=== PATIENT | male | born 1965 ===

== ENCOUNTER 2016-11-24 08:59 | Emergency (ER) | payer OTHER ==
[2016-11-24 09:29] VITALS: TEMP 97.8
--- NOTE | 2016-11-24 09:44 | C.PDOC ---
History Of Present Illness 50 y/o M c no PMHx p/w R knee pain x 3 days. Pain began spontaneously, no injury or trauma. Denies fever or inability to range. Reports pain in a focal area at the medial aspect of the knee. Time Seen by Provider: 11/24/16 09:15 Chief Complaint (Nursing): Lower Extremity Problem/Injury Past Medical History Vital Signs: Last Vital Signs Temp 97.8 F 11/24/16 09:26 Pulse 64 11/24/16 09:26 Resp 16 11/24/16 09:26 BP 121/88 11/24/16 09:26 Pulse Ox 96 11/24/16 09:44 - Medical History PMH: Denies: Chronic Kidney Disease Family History: States: Unknown Family Hx - Social History Hx Tobacco Use: No Hx Alcohol Use: No Hx Substance Use: No - Immunization History Hx Tetanus Toxoid Vaccination: No Hx Influenza Vaccination: No Hx Pneumococcal Vaccination: No Review Of Systems Except As Marked, All Systems Reviewed And Found Negative. Constitutional: Negative for: Fever Respiratory: Negative for: Shortness of Breath Physical Exam - Physical Exam Additional Physical Exam Comments: Gen: NAD. Head: AC. Extremities: R knee with focal tenderness medial to patella. No edema, erythema , or limitation in range of motion. Neuro: Sensation to light touch and motor both intact in lower leg. ED Course And Treatment O2 Sat by Pulse Oximetry: 96 Medical Decision Making Medical Decision Making: Toradol IM for pain. XR negative for dislocation or fracture. Otherwise, will advise rest, compression, elevation, pain control, and follow up with Orthopedics for further evaluation and management. Disposition - Disposition Referrals: [facility] at [facility] [Outside] Disposition: HOME/ ROUTINE Disposition Time: 11:10 Condition: STABLE Additional Instructions: Call the [facility] to make an appointment and say that you need to follow up with Orthopedics. Prescriptions: Famotidine [Pepcid] 1 tab PO BID #14 tab Ibuprofen [Motrin] 600 mg PO Q6 #25 tab Instructions: Knee Pain (ED) Forms: Work Excuse - Clinical Impression Clinical Impression: Knee pain
--- NOTE | 2016-11-24 11:21 | RAD ---
Right knee three views History: Knee pain. Comparison: None available. Findings: Mild medial and patellofemoral compartment joint space narrowing. Mild bony spurring at the posterior superior patella. No significant suprapatellar joint effusion. Mild productive change at the level of the proximal medullary cavity of the fibula on the lateral view, nonspecific. Impression: Degenerative changes. Negative acute. If pain persists, consider MRI.
[2016-11-24 11:58] VITALS: BP 126/78; PULSE 56; RESP 18; O2SAT 99
== END 2016-11-24 11:59 | disposition home or self-care (01) ==
LOC: C.ER 08:59
DX: M25.561 Pain in right knee (principal)
CPT/HCPCS: 73562; 96372; 99285; J1885

== ENCOUNTER 2017-02-06 07:44 | Emergency (ER) | payer OTHER ==
[2017-02-06 07:54] VITALS: BMI 32.3
[2017-02-06 08:05] VITALS: PULSE 56; RESP 18
--- NOTE | 2017-02-06 08:28 | C.PDOC ---
History Of Present Illness 51 year old male presents to ED with complaints of cramping abdominal pain since yesterday. Pt states it feels "hard". H/o similar epsiodes with negative US and no f/u with GI. He took 800mg of Ibuprofen this morning with relief. Patient denies chest pain, SOB, fever, nausea, vomiting, or diarrhea. Chief Complaint (Nursing): Abdominal Pain History Per: Patient, Sqe History/Exam Limitations: no limitations Onset/Duration Of Symptoms: Hrs (since yesterday ) Current Symptoms Are (Timing): Still Present Location Of Pain/Discomfort: Diffuse Quality Of Discomfort: Cramping Associated Symptoms: denies: Fever, Chills, Nausea, Vomiting, Diarrhea Recent travel outside of the [place]: No Past Medical History Reviewed: Historical Data, Nursing Documentation, Vital Signs Vital Signs: Last Vital Signs Temp 97.6 F 02/06/17 11:33 Pulse 56 L 02/06/17 11:33 Resp 18 02/06/17 11:33 BP 118/76 02/06/17 11:33 Pulse Ox 97 02/06/17 17:28 - [facility] Procedures INJECT/INFUSE NEC (09/26/05) NEBULIZER THERAPY (03/08/04) Family History: States: Unknown Family Hx - Social History Hx Alcohol Use: No Hx Substance Use: No - Immunization History Hx Tetanus Toxoid Vaccination: No Hx Influenza Vaccination: No Hx Pneumococcal Vaccination: No Review Of Systems Constitutional: Negative for: Fever, Chills Cardiovascular: Negative for: Chest Pain Respiratory: Negative for: Shortness of Breath Gastrointestinal: Positive for: Abdominal Pain. Negative for: Nausea, Vomiting , Diarrhea Physical Exam - Physical Exam Appears: Non-toxic, No Acute Distress Skin: Warm, Dry Head: Atraumatic Eye(s): bilateral: Normal Inspection, EOMI Nose: Normal Oral Mucosa: Moist Neck: Normal ROM, Supple Chest: Symmetrical, No Deformity Cardiovascular: Rhythm Regular Respiratory: Normal Breath Sounds, No Rhonchi, No Wheezing Gastrointestinal/Abdominal: Soft, Tenderness (diffuse), No Distention, No Guarding, No Rebound Back: No CVA Tenderness, No Vertebral Tenderness Neurological/Psych: Oriented x3, Normal Speech ED Course And Treatment - Laboratory Results Result Diagrams: 02/06/17 09:28 02/06/17 09:28 O2 Sat by Pulse Oximetry: 97 (room air ) - CT Scan/US CT abdomen and pelvis with contrast Other Rad Studies (CT/US): Read By Radiologist, Radiology Report Reviewed CT/US Interpretation: FINDINGS: LOWER THORAX: No visible consolidation, pleural effusion, or pneumothorax. Small hiatal hernia. LIVER: Hypoattenuation of the liver compatible with hepatic steatosis. Evidence of focal fatty sparing adjacent to the gallbladder fossa. GALLBLADDER AND BILE DUCTS: Unremarkable. PANCREAS: Unremarkable. SPLEEN: Unremarkable. ADRENALS: Unremarkable. KIDNEYS AND URETERS: The kidneys enhance symmetrically. No hydronephrosis or obstructing calculus identified. VASCULATURE: No aortic aneurysm. BOWEL: Stomach is nondistended. Lack of oral contrast limits evaluation for bowel pathology. Bowel loops appear within normal limits of caliber without evidence of obstruction. APPENDIX: The appendix appears within normal limits of caliber. No secondary signs of acute appendicitis. PERITONEUM: No significant free fluid. No definite free air. LYMPH NODES: No bulky adenopathy. BLADDER: Unremarkable. REPRODUCTIVE: Unremarkable. BONES: No acute osseous abnormality is detected. . OTHER FINDINGS: None. IMPRESSION: Hepatic steatosis with evidence of focal fatty sparing adjacent to the gallbladder fossa. Small hiatal hernia. Progress Note: Upon re-evaluation patient is resting comfortably, abdomen remains soft, and patient is tolerating PO. Discussed with pt results , copies given and instructed strict follow up. Discussed all aliments have not been ruled out therefore re-evaluation in 1-2 days in suggested. Instructed to return to ER if symptoms persist or worsen. Php Architect used to ensure understanding. Disposition - Disposition Referrals: [facility] at [facility] [Outside] Shine Davis MD [Staff Provider] - Disposition: HOME/ ROUTINE Disposition Time: 11:57 Condition: STABLE Additional Instructions: Vaya a valente mdico o la clnica en 2-5 garcia sin falta, para mas evaluacin. [place] los medicamentos mati indicado. Volver a la chilo de emergencia en cualquier momento si los sntomas persisten o empeoran.. Prescriptions: Famotidine [Pepcid] 20 mg PO BID #10 tab Instructions: Acute Abdominal Pain (ED) Forms: [employer] (Frisian) Print Language: SLOVAK - Clinical Impression Clinical Impression: Abdominal pain - Scribe Statement The provider has reviewed the documentation as recorded by the Scribe Bhargavi Alfredo All medical record entries made by the Scribe were at my direction and personally dictated by me. I have reviewed the chart and agree that the record accurately reflects my personal performance of the history, physical exam, medical decision making, and the department course for this patient. I have also personally directed, reviewed, and agree with the discharge instructions and disposition.
[2017-02-06] MEDS ORDERED: Sodium Chloride 0.9% 1,000 ML IV ONE (08:34)
[2017-02-06 09:33] LABS: EOS # 1.5 K/uL (0.0-0.7); EOS % 22.2 % (0.0-4.0); HEMOGLOBIN 15.4 g/dL (12.0-18.0); LYMPH # 3.7 K/uL (1.0-4.3); LYMPH % 55.6 % (20.0-40.0); MEAN CELL VOLUME 87.5 fL (80.0-94.0); MEAN CORPUSCULAR HEMOGLOBIN 29.8 pg (27.0-31.0); MEAN CORPUSCULAR HGB CONC 34.1 g/dL (33.0-37.0); MONO # 0.7 K/uL (0.0-0.8); MONO % 11.1 % (0.0-10.0); NEUT # 0.7 K/uL (1.8-7.0); NEUT % 11.1 % (50.0-75.0); PLATELET COUNT 193 K/uL (130-400); RBC 5.16 Mil/uL (4.40-5.90); WHITE BLOOD COUNT 6.6 K/uL (4.8-10.8)
[2017-02-06 09:48] LABS: ALBUMIN 3.6 g/dL (3.5-5.0)
[2017-02-06 09:51] LABS: ALB/GLOB RATIO 1.2 (1.0-2.1); ALT/SGPT 95 U/L (21-72); AST/SGOT 40 U/L (17-59); BLOOD UREA NITROGEN 18 mg/dL (9-20); CALCIUM 8.4 mg/dl (8.6-10.4); GFR AFRICAN-AMERICAN > 60; GFR NON-AFRICAN AMERICAN > 60; LIPASE 30 U/L (23-300)
[2017-02-06 10:20] LABS: EOSINOPHIL 2 % (0-4); LYMPHOCYTE 27 % (20-40); MONOCYTE 12 % (0-10); NEUTROPHIL 59 % (50-75); TOTAL CELLS COUNTED 100
[2017-02-06 10:21] LABS: PLATELET ESTIMATE NORMAL (NORMAL)
[2017-02-06] MEDS ORDERED: Iohexol 350mg/ml 100 ML ONE (10:34)
--- NOTE | 2017-02-06 11:27 | CT ---
PROCEDURE: CT Abdomen and Pelvis with contrast HISTORY: pain COMPARISON: None available TECHNIQUE: Contrast dose: 100 mL Visipaque Radiation dose: Total exam DLP = 984.26 mGy-cm. This CT exam was performed using one or more of the following dose reduction techniques: Automated exposure control, adjustment of the mA and/or kV according to patient size, and/or use of iterative reconstruction technique. FINDINGS: LOWER THORAX: No visible consolidation, pleural effusion, or pneumothorax. Small hiatal hernia. LIVER: Hypoattenuation of the liver compatible with hepatic steatosis. Evidence of focal fatty sparing adjacent to the gallbladder fossa. GALLBLADDER AND BILE DUCTS: Unremarkable. PANCREAS: Unremarkable. SPLEEN: Unremarkable. ADRENALS: Unremarkable. KIDNEYS AND URETERS: The kidneys enhance symmetrically. No hydronephrosis or obstructing calculus identified. VASCULATURE: No aortic aneurysm. BOWEL: Stomach is nondistended. Lack of oral contrast limits evaluation for bowel pathology. Bowel loops appear within normal limits of caliber without evidence of obstruction. APPENDIX: The appendix appears within normal limits of caliber. No secondary signs of acute appendicitis. PERITONEUM: No significant free fluid. No definite free air. LYMPH NODES: No bulky adenopathy. BLADDER: Unremarkable. REPRODUCTIVE: Unremarkable. BONES: No acute osseous abnormality is detected. . OTHER FINDINGS: None. IMPRESSION: Hepatic steatosis with evidence of focal fatty sparing adjacent to the gallbladder fossa. Small hiatal hernia.
[2017-02-06 11:33] LABS: URINE BILIRUBIN NEGATIVE (NEGATIVE); URINE BLOOD NEGATIVE (NEGATIVE); URINE CLARITY Clear (Clear); URINE COLOR Yellow (YELLOW); URINE GLUCOSE (UA) NORMAL (Normal); URINE LEUKOCYTE ESTERASE NEG Leu/uL (Negative); URINE NITRATE NEGATIVE (NEGATIVE); URINE PROTEIN NEGATIVE (NEGATIVE); URINE UROBILINOGEN NORMAL mg/dL (0.2-1.0)
[2017-02-06 11:34] VITALS: BP 118/76; TEMP 97.6
[2017-02-06 11:59] VITALS: O2SAT 97
--- NOTE | 2017-02-09 13:16 | CARD ---
APPROVED REPORT EKG Measurement Heart [id number] <Conclusion> Sinus bradycardia Otherwise normal ECG
== END 2017-02-06 12:30 | disposition home or self-care (01) ==
LOC: MERGE 07:44 → C.ER 07:44
DX: R10.9 Unspecified abdominal pain (principal)
CPT/HCPCS: 74177; 80053; 81001; 83690; 84484; 85025; 93005; 96361; 96374; 96375; 99284; J2405; J7040; Q9967

== ENCOUNTER 2017-02-08 16:57 | Observation (INO) | payer SELFPAY ==
[2017-02-08 16:58] VITALS: BMI 32.3
--- NOTE | 2017-02-08 17:39 | C.PDOC ---
History Of Present Illness <Jessica Clinton - Last Filed: 02/08/17 18:54> <Fadi Goldsteins E - Last Filed: 02/08/17 20:24> 51 y/o male presents to the ED for evaluation of persistent right-sided abdominal wall pain which began around 4 days ago. Patient was evaluated on 02/06 for same complaint. Patient currently states his pain has persisted and has been unchanged with Pepcid or muscle relaxants. Patient notes pain is localized and worse when standing upright or when he raises his right arm. Patient denies fever, nausea, vomiting, diarrhea. He denies prior abdominal surgery or trauma. PERSIST R ABD WALL PAIN X 4 DAYS. EVAL 02/06 FOR SAME. CURRENT PAIN PERSIST, UNCH W PEPCID OR MUSCLE RELAXANT. LOCALIZED, WORSE WHEN STAND UPRIGHT OR RAISES R ARM. NO FEVER, NVD. DENIES PRIOR ABD SURG. NO TRAUMA EXAM MOD DIST NONTOXIC NO CHEST WALL TEND ABD +TEND UPPER LAT R WALL/CVAT SOFT NO R/G REMAINDER NEG (Oz,Jessica) History Per: Patient History/Exam Limitations: no limitations Onset/Duration Of Symptoms: Days (4) Current Symptoms Are (Timing): Still Present Radiation Of Pain To:: None Quality Of Discomfort: "Pain" Associated Symptoms: denies: Fever, Chills, Nausea, Vomiting, Diarrhea Exacerbating Factors: Upright Position (standing ), Other (+raising right arm ) Additional History Per: Patient <Jessica Clinton - Last Filed: 02/08/17 18:54> <Fadi Goldsteins E - Last Filed: 02/08/17 20:24> Time Seen by Provider: 02/08/17 17:32 Chief Complaint (Nursing): Abdominal Pain Past Medical History Reviewed: Historical Data, Nursing Documentation, Vital Signs - Medical History PMH: No Chronic Diseases Surgical History: No Surg Hx Family History: States: Unknown Family Hx - Social History Hx Alcohol Use: No Hx Substance Use: No - Immunization History Hx Tetanus Toxoid Vaccination: Yes Hx Influenza Vaccination: Yes Hx Pneumococcal Vaccination: Yes <Jessica Clinton - Last Filed: 02/08/17 18:54> Review Of Systems Constitutional: Negative for: Fever, Chills Gastrointestinal: Positive for: Abdominal Pain (right-sided ). Negative for: Nausea, Vomiting, Diarrhea <Jessica Clinton - Last Filed: 02/08/17 18:54> Physical Exam - Physical Exam Appears: Non-toxic, Other (+moderate distress ) Skin: Normal Color, Warm, Dry Eye(s): bilateral: Normal Inspection Chest: Symmetrical, No Deformity, No Tenderness Cardiovascular: Rhythm Regular, No Murmur Respiratory: Normal Breath Sounds, No Rales, No Rhonchi, No Wheezing Gastrointestinal/Abdominal: Tenderness (+lateral aspect of right upper quadrant ), No Guarding, No Rebound Back: CVA Tenderness (right-sided ) Extremity: Normal ROM, Capillary Refill (less than 2 seconds ) Neurological/Psych: Normal Speech, Normal Cognition Gait: Steady <Jessica Clinton - Last Filed: 02/08/17 18:54> ED Course And Treatment - Laboratory Results Result Diagrams: 02/08/17 18:00 02/08/17 18:00 O2 Sat by Pulse Oximetry: 100 (on RA) Pulse Ox Interpretation: Normal - Radiology CXR: Interpreted by Il CXR Interpretation: Yes: No Acute Disease Progress Note: Labs, CXR, Abdomen XR ordered and reviewed. Patient received Morphine IV, Zofran IV, and IVF. <OzJessica - Last Filed: 02/08/17 18:54> - Laboratory Results Result Diagrams: 02/08/17 18:00 02/08/17 18:00 - CT Scan/US CT Angio Chest Other Rad Studies (CT/US): Read By Radiologist, Radiology Report Reviewed CT/US Interpretation: IMPRESSION: 1. No pulmonary embolism. 2. Small hiatal hernia. 3. Hepatic steatosis. <Jan Goldstein - Last Filed: 02/08/17 20:24> Progress - Data Reviewed Data Reviewed: Lab, Diagnostic imaging, Old records <OzJessica - Last Filed: 02/08/17 18:54> Medical Decision Making <OzJessica - Last Filed: 02/08/17 18:54> <Jan Goldstein - Last Filed: 02/08/17 20:24> Medical Decision Making: signed over @ 1900, pt pending CTA and ABD US for crampy epigastric pain radiating to the back. today is 2nd eval for same from 2 days ago pt seen and examined belly benign, obese, dull to percussion in epigastrum and R abd no digital tenderness to R abd or chest wall normal labs x 2 days 02/06 and 02/08 CTABD neg 02/06 CTA r/o PE for minimally elevated d-dimer 299 neg ABD US 02/08 neg, steatohepatitis 2 view abd +FOS A/P: chronic constipation, despite pt relating he "has regular BM's" laxative and stool softners. (Jan Goldstein) ED OBSERVATION Date of observation admission: 02/08/17 Time of observation admission: 17:30 <Jessica Clinton - Last Filed: 02/08/17 18:54> Discharge: Yes <Jan Goldstein - Last Filed: 02/08/17 20:24> - Observation admission statement Patient is being placed in observation because:: ABD PAIN (Jessica Clinton) - Goals of Observation Goals of observation are:: SX IMPROVE, NEG ACUTE FINDINGS (Jessica Clinton) - Progress Note Progress Note: 02/08/17 18:29 SP MORPHINE FEELS BETTER. APPEARS MORE COMFORTABLE. VSS. +DIMER. US ABD, ANGIO CT PENDING 02/08/17 18:54 S/O DR GOLDSTEIN FU CT, US, DISPO (Jessica Clinton) Disposition <Jessica Clinton - Last Filed: 02/08/17 18:54> Doctor Will See Patient In The: Office Counseled Patient/Family Regarding: Studies Performed, Diagnosis - Disposition Disposition Time: 20:24 <Jan Goldstein - Last Filed: 02/08/17 20:24> - Disposition Disposition: HOME/ ROUTINE Condition: GOOD - Clinical Impression Clinical Impression: Abdominal colic - Scribe Statement The provider has reviewed the documentation as recorded by the Scribe (Beverly Hurtado) <Jessica Clinton - Last Filed: 02/08/17 18:54> <Jan Goldstein - Last Filed: 02/08/17 20:24> - Scribe Statement Provider Attestation: All medical record entries made by the Scribe were at my direction and personally dictated by me. I have reviewed the chart and agree that the record accurately reflects my personal performance of the history, physical exam, medical decision making, and the department course for this patient. I have also personally directed, reviewed, and agree with the discharge instructions and disposition. (Jessica Clinton)
[2017-02-08] MEDS ORDERED: Sodium Chloride 0.9% 1,000 ML IV ONE (17:40)
[2017-02-08] MEDS ORDERED: Morphine 4 MG/ML VIAL ONE (17:47)
[2017-02-08] MEDS ORDERED: Sodium Chloride 0.9% 1,000 ML ONE (17:47)
[2017-02-08 18:04] LABS: BASO # 0.1 K/uL (0.0-0.2); BASO % 0.8 % (0.0-2.0); EOS # 0.3 K/uL (0.0-0.7); EOS % 3.7 % (0.0-4.0); HEMOGLOBIN 16.1 g/dL (12.0-18.0); LYMPH # 2.4 K/uL (1.0-4.3); LYMPH % 28.4 % (20.0-40.0); MEAN CELL VOLUME 87.3 fL (80.0-94.0); MEAN CORPUSCULAR HEMOGLOBIN 30.4 pg (27.0-31.0); MEAN CORPUSCULAR HGB CONC 34.8 g/dL (33.0-37.0); MEAN PLATELET VOLUME 7.7 fL (7.2-11.7); MONO # 0.8 K/uL (0.0-0.8); MONO % 9.5 % (0.0-10.0); NEUT # 4.8 K/uL (1.8-7.0); NEUT % 57.6 % (50.0-75.0); RBC 5.29 Mil/uL (4.40-5.90); RED CELL DISTRIBUTION WIDTH 13.3 % (11.5-14.5); WHITE BLOOD COUNT 8.3 K/uL (4.8-10.8)
[2017-02-08 18:14] LABS: ALBUMIN 4.1 g/dL (3.5-5.0)
[2017-02-08 18:16] LABS: GFR AFRICAN-AMERICAN > 60; GFR NON-AFRICAN AMERICAN > 60
[2017-02-08 18:17] LABS: ALB/GLOB RATIO 1.3 (1.0-2.1); ALT/SGPT 84 U/L (21-72); AST/SGOT 31 U/L (17-59); BLOOD UREA NITROGEN 11 mg/dL (9-20); LIPASE 28 U/L (23-300)
[2017-02-08] MEDS ORDERED: Iodixanol 320 MG/ML 100 ML BOTTLE IV ONE (18:38)
--- NOTE | 2017-02-08 20:12 | US ---
EXAM: US Abdomen Limited, Right Upper Quadrant CLINICAL HISTORY: 51 years old, male; Pain; Abdominal pain; Epigastric; Additional info: Ruq abd pain TECHNIQUE: Real-time ultrasound of the right upper quadrant with image documentation. EXAM DATE/TIME: Exam ordered 02/08/2017 5:41 PM COMPARISON: No relevant prior studies available. FINDINGS: Liver: The liver measures 20 cm in craniocaudal span. The liver is generally increased in echotexture with evidence of sound attenuation. There is normal blood flow direction the main portal vein. No intrahepatic bile duct dilation. Gallbladder: Unremarkable. No gallstones. Common bile duct: The common bile duct measures 4 mm. No stones. No dilation. Pancreas: Unremarkable as visualized. Right kidney: The right kidney measures 12.2 x 4 x 4.5 cm. No stones. No hydronephrosis. IMPRESSION: Hepatic steatosis
[2017-02-08 21:03] VITALS: BP 153/95; PULSE 66; RESP 20; TEMP 98.3; O2SAT 98
--- NOTE | 2017-02-09 09:32 | RAD ---
HISTORY: Upper abdominal pain COMPARISON: No prior. TECHNIQUE: Chest PA and lateral FINDINGS: LUNGS: Mild venous congestion. Mild right hilar prominence. Mild patchy increased markings at the left lung base. PLEURA: No significant pleural effusion identified. No pneumothorax apparent. CARDIOVASCULAR: Normal. OSSEOUS STRUCTURES: No significant abnormalities. VISUALIZED UPPER ABDOMEN: Normal. OTHER FINDINGS: None. IMPRESSION: Mild venous congestion. Mild right hilar prominence. Mild patchy increased markings at the left lung base.
--- NOTE | 2017-02-09 10:22 | RAD ---
HISTORY: abd discomfort, bloating, colic, ? constip COMPARISON: CT abdomen pelvis with contrast performed 02/06/17 FINDINGS: BOWEL: Nonobstructive bowel gas pattern. No definite free air. Moderate constipation. Residual contrast noted within the renal collecting system and urinary bladder. BONES: Degenerative changes. OTHER FINDINGS: Elevation of the right hemidiaphragm. IMPRESSION: Moderate constipation.
--- NOTE | 2017-02-09 12:32 | CT ---
CTA chest PE protocol Indication: Shortness of breath, rule out PE Technique: Contiguous axial images were obtained through the chest with intravenous contrast enhancement. Sagittal and coronal reconstructions were generated and reviewed. This CT exam was performed using 1 or more of the falling dose reduction techniques: Automated exposure control, adjustment of the MAA and/or kV according to patient size, and/or use of iterative reconstruction technique. IV Contrast: 100 mL Visipaque Radiation dose (DLP): 527.95 MGy-cm. Comparison: Chest x-ray performed 02/08/17 Findings: Visualized portions of the inferior thyroid gland appear unremarkable. The mediastinal and hilar vascular structures appear grossly unremarkable. The heart appears within normal limits of size. Sub cm mediastinal lymph nodes, nonspecific. No large central or segmental pulmonary embolus evident. Tiny focus of air within the main pulmonary artery likely related to contrast injection. No focal consolidation. No pleural effusion. No pneumothorax. No suspicious pulmonary nodules measuring greater than 5 mm. Small hiatal hernia/ distal esophageal wall thickening. Limited visualized portions of the upper abdomen demonstrates hypoattenuation of the hepatic parenchyma consistent with hepatic steatosis. Suspected focal fatty sparing adjacent to the gallbladder fossa. No acute osseous abnormality is detected. Impression: No large central or segmental pulmonary embolus identified. Small hiatal hernia/distal esophageal wall thickening. Hepatic steatosis. Suspected focal fatty sparing adjacent to the gallbladder fossa. Preliminary impression was provided by virtual radiologic.
== END 2017-02-08 20:27 | disposition home or self-care (01) ==
LOC: C.ER 16:57 → C.9OBSV 17:30 → MERGE 17:30
PROVIDERS: ADMIT Emergency Medicine; ATTEND Emergency Medicine
DX: K59.09 Other constipation (principal); K75.81 Nonalcoholic steatohepatitis (NASH)
CPT/HCPCS: 71020; 71275; 74020; 76705; 80053; 83690; 85025; 85378; 96374; 96375; 99285; G0378; J2270; J2405; J7040; Q9967

== ENCOUNTER 2018-03-23 12:08 | Emergency (ER) | payer OTHER ==
[2018-03-23 12:13] VITALS: BMI 30.4
[2018-03-23 12:16] VITALS: BP 141/96; PULSE 64; RESP 18; TEMP 98.5; O2SAT 97
--- NOTE | 2018-03-23 12:59 | C.PDOC ---
History Of Present Illness 52yo male, comes to ER for evaluation of new onset right shoulder pain since yesterday. Patient reports pain is worse with movement and changes in psotion. He denies any injuries or trauma and also denies any prior history of similar pain. He took Motrin 800mg this morning with minimal relief. Otherwise, no weakness or numbness of right arm. Time Seen by Provider: 03/23/18 12:24 Chief Complaint (Nursing): Upper Extremity Problem/Injury History Per: Patient History/Exam Limitations: no limitations Onset/Duration Of Symptoms: Days (1) Current Symptoms Are (Timing): Still Present Quality: "Pain" Exacerbating Factor(s): Strenuous Use Of Affected Area, Movement Additional History Per: Patient Past Medical History Reviewed: Historical Data, Nursing Documentation, Vital Signs Vital Signs: Last Vital Signs Temp 98.5 F 03/23/18 12:15 Pulse 64 03/23/18 12:15 Resp 18 03/23/18 12:15 BP 141/96 H 03/23/18 12:15 Pulse Ox 97 03/23/18 13:00 - Medical History PMH: No Chronic Diseases Denies: Chronic Kidney Disease Surgical History: No Surg Hx - [facility] Procedures INJECT/INFUSE NEC (09/26/05) NEBULIZER THERAPY (03/08/04) Family History: States: No Known Family Hx - Social History Hx Tobacco Use: No Hx Alcohol Use: No Hx Substance Use: No - Immunization History Hx Tetanus Toxoid Vaccination: No Hx Influenza Vaccination: No Hx Pneumococcal Vaccination: No Review Of Systems Musculoskeletal: Positive for: Shoulder Pain Neurological: Negative for: Weakness, Numbness Physical Exam - Physical Exam Appears: Non-toxic Back: Muscle Spasm (right trapezius tenderness/spasm) Extremity: Normal ROM (Full external and internal rotation at right shoulder; able to abduct to 120 degrees; flexion to 150 degrees/), No Deformity, No Swelling Pulses: Right Radial: Normal Neurological/Psych: Oriented x3, Normal Motor, Normal Sensation ED Course And Treatment O2 Sat by Pulse Oximetry: 97 (RA) Pulse Ox Interpretation: Normal Progress Note: Patient given Naproxen, Zofran and Percocet. Disposition Counseled Patient/Family Regarding: Diagnosis, Need For Followup, Rx Given - Disposition Referrals: [facility] [Outside] [facility] [Outside] Disposition: HOME/ ROUTINE Disposition Time: 12:58 Condition: IMPROVED Prescriptions: Acetaminophen [Tylenol 325mg tab] 650 mg PO Q6 #30 tab Cyclobenzaprine [Flexeril] 10 mg PO TID #15 tab Tramadol HCl [Ultram] 50 mg PO QID #20 tab Instructions: Shoulder Pain (DC) Forms: [employer] (Israeli) Print Language: LAO - Clinical Impression Clinical Impression: Rotator cuff (capsule) sprain - Scribe Statement The provider has reviewed the documentation as recorded by the Abdulaziz Jordan Provider Attestation: All medical record entries made by the Abdulaziz were at my direction and personally dictated by me. I have reviewed the chart and agree that the record accurately reflects my personal performance of the history, physical exam, medical decision making, and the department course for this patient. I have also personally directed, reviewed, and agree with the discharge instructions and disposition.
[2018-03-23] MEDS ORDERED: Oxycodone/Acetaminophen 5/325 mg Tab PO STA (13:00)
[2018-03-23] MEDS ORDERED: Naproxen 550 mg Tab PO STA (13:00)
[2018-03-23] MEDS ORDERED: Oxycodone/Acetaminophen 5/325 mg Tab ONE (13:14)
[2018-03-23] MEDS ORDERED: Naproxen 550 mg Tab PO ONE (13:15)
== END 2018-03-23 13:30 | disposition home or self-care (01) ==
LOC: C.ER 12:08
DX: S43.421A Sprain of right rotator cuff capsule, initial encounter (principal); X58.XXXA Exposure to other specified factors, initial encounter